=== PATIENT | female | born 1950 | race Caucasian/White ===

== ENCOUNTER 2017-07-13 08:23 | Day surgery (SDC) | payer MEDICARE, BC ==
[~2017-07-13 08:23] MED LIST: PROPOFOL 500 MG/50 ML EMU IV ONE
[2017-07-13 10:16] VITALS: BP 144/87; PULSE 57; RESP 20; TEMP 97.3; O2SAT 99
== END 2017-07-13 10:30 | disposition home or self-care (01) | DRG 951 ==
LOC: SURG 08:23
PROVIDERS: ATTEND Surgery
DX: Z12.11 Encounter for screening for malignant neoplasm of colon (principal); K62.1 Rectal polyp; Z86.010 Personal history of colon polyps
CPT/HCPCS: J2704